=== PATIENT | male | born 1970 | race Caucasian/White ===

== ENCOUNTER → 2021-03-02 | Day surgery (SDC) | payer OTHER ==
[~2021-03-02] MED LIST: DERMOPLAST PAIN78 GM TOP; PERCOCET 5-3251 EACH PO; RECTICARE30 GM TOP
== END | disposition home or self-care (01) ==
LOC: CIR.AMB 10:27
PROVIDERS: ATTEND Surgery
DX: K64.8 Other hemorrhoids (principal); K64.4 Residual hemorrhoidal skin tags; Z20.822 Contact with and (suspected) exposure to COVID-19